=== PATIENT | female | born 1950 | race Caucasian/White ===

== ENCOUNTER 2017-10-27 09:28 | Day surgery (SDC) | payer MEDICARE, OTHER ==
[~2017-10-27] VITALS: Ht 156.2 cm; Wt 56.2 kg
[~2017-10-27 09:28] MED LIST: ADULT ASPIRIN E81 MG PO; ATORVASTATIN CA10 MG PO; B-12 COMPL1000 MCG/M IM; CITALOPRAM40 MG PO; CLOPIDOGREL75 MG PO; LORTAB5 PO; XANAX1 MG PO
[2017-10-27] MEDS ORDERED: BL IBUPROFEN200 MG PO (09:46)
[2017-10-27 12:46] VITALS: BP 161/63
[2017-10-27] MEDS ORDERED: PERCOCET1 TA4 PO (12:48)
== END 2017-10-27 13:20 | disposition home or self-care (01) ==
LOC: ORM 09:28
PROVIDERS: ATTEND Orthopaedic Surgery
PROC: 0SNCXZZ Release Right Knee Joint, External Approach (ICD-10-PCS; principal; 2017-10-27)
DX: T84.82XA Fibrosis due to internal orthopedic prosthetic devices, implants and grafts, initial encounter (principal); Z96.651 Presence of right artificial knee joint; Y83.1 Surgical operation with implant of artificial internal device as the cause of abnormal reaction of the patient, or of later complication, without mention of misadventure at the time of the procedure

== ENCOUNTER 2020-05-13 08:07 | Emergency (ER) | payer MEDICARE, OTHER ==
[~2020-05-13] VITALS: Ht 156.2 cm; Wt 45.0 kg
[~2020-05-13 08:07] MED LIST changes: +BL IBUPROFEN200 MG PO; +PERCOCET1 TA4 PO
[2020-05-13 11:15] VITALS: BP 120/61
== END 2020-05-13 11:37 | disposition home or self-care (01) ==
LOC: ED 08:07
DX: S83.91XA Sprain of unspecified site of right knee, initial encounter (principal); S16.1XXA Strain of muscle, fascia and tendon at neck level, initial encounter; S09.90XA Unspecified injury of head, initial encounter; F32.9 Major depressive disorder, single episode, unspecified; W01.0XXA Fall on same level from slipping, tripping and stumbling without subsequent striking against object, initial encounter; Y93.K1 Activity, walking an animal; Y92.009 Unspecified place in unspecified non-institutional (private) residence as the place of occurrence of the external cause

== ENCOUNTER 2020-06-12 07:46 | Inpatient (IN) | payer MEDICARE, OTHER ==
[~2020-06-12] VITALS: Ht 167.6 cm; Wt 60.8 kg
[2020-06-12] MEDS ORDERED: WELLBUTRIN XL150 MG PO (14:47)
[2020-06-12] MEDS ORDERED: ESCITALOPRAM OX10 MG PO (14:47)
[2020-06-12] MEDS ORDERED: TRAZODONE50 MG PO (14:48)
[2020-06-12] MEDS ORDERED: ALLERGY NA50 MCG/ACT NS (14:48)
[2020-06-12] MEDS ORDERED: LOSARTAN POTASS50 MG PO (14:49)
[2020-06-12] MEDS ORDERED: IRON (FERROUS S50 MG PO (14:49)
[2020-06-19] VITALS (10 sets, daily range): BP systolic 123–165; BP diastolic 49–80
--- NOTE | 2020-06-19 11:20 | NUR ---
PT ARRIVED TO MED/SURG ROOM 279 IN STABLE CONDITION VIA HOSPITAL BED ACCOMPANIED BY IMERRN;PT A&O X3, ORIENTED TO ROOM AND CALL LIGHT SYSTEM;VS OBTAINED AND ASSESSMENT COMPLETED;PT DENIES ANY CURRENT PAIN OR DISCOMFORTS,PAIN SCALE AND REPORTING EDUCATED;PT POST OP RIGHT SHOULDER ARTHROPLASTY ON 06/19/20;RESPIRATIONS EVEN AND UNLABORED ON RA,CLEAR LUNG SOUNDS AND I.S. PROVIDED, PT DEMONSTRATED USE AND ENCOURAGED USE 10X PER HOUR;ABDOMEN SOFT ON PALPATION AND ACTIVE IN ALL 4 QUADRANTS,LAST BM 06/18/20;WEAK PEDAL PULSES,SCD'S NOTED;#20G TO LAC INFUSING NS WITH EASE @ 100ML/HR,SITE APPEARS HEALTHY;RIGHT SHOULDER DRESSING CDI WITH SLING NOTED, ICE PACK PROVIDED;ICE CHIPS PROVIDED PER REQUEST;FALL AND ALLERGY BAND APPLIED TO LEFT ARM;PT DENIES ANY ADDITIONAL NEEDS AT THIS TIME;ENCOURAGED TO CALL FOR ASSISTANCE IF NEEDED;FALL PRECAUTIONS IN PLACE WITH CALL LIGHT IN REACH;FREQUENT ROUNDS MADE.
--- NOTE | 2020-06-19 13:30 | NUR ---
PT RESTING IN SEMI FOWLERS POSITION;RESPIRATIONS EVEN AND UNLABORED ON RA;PT DENIES ANY CURRENT PAIN OR NEEDS;IV FLUIDS CONTINUE TO INFUSE WITH EASE PER ORDER;RT SHOULDER DRESSING CDI WITH SLING IN PLACE;ASSESSMENT REMAINS UNCHANGED;CALL LIGHT IN REACH;FREQUENT ROUNDS MADE.
--- NOTE | 2020-06-19 15:50 | NUR ---
PT APPEARS TO BE SLEEPING IN SEMI FOWLERS POSITION;RESPIRATIONS EVEN AND UNLABORED ON RA;NO S/S/ OF DISTRESS NOTED;IV FLUIDS INFUSING WITH EASE PER ORDER;DRESSING TO RT SHOULDER CDI;ALL SAFETY PRECAUTIONS REMAIN IN PLACE WITH BED IN THE LWOEST POSITION AND CALL LIGHT IN REACH;WILL CONTINUE TO MONITOR
--- NOTE | 2020-06-19 20:00 | NUR ---
PATIENT RESTING IN BED AT THIS TIME-AWAKE ALERT AND ORKIENTEDX3, PATIENT WITH HOB ELEVATED. RIGHT SHOULDER DRESSING IS CDI. SLING TO RIGHT ARM INTACT. CMS TO RIGHT FINGERS WNL. PATIENT WITH IV SITE TO LEFT AC INTACT WITH LR PATENT AND INFUSING AT 100CC/HR. SITE IS HEALTHY. VOIDING QS ON BSC. ENCOURAGED USE OF IS AT BEDSIDE Q1H WHILE AWAKE. ICE PACK PROVIDED FOR RIGHT SHOULDER ON AND OFF. SAFETY PRECAUTIONS REINFORCED. CALL LIGHT IN REACH. WILL CONT TO MONITOR.
--- NOTE | 2020-06-20 | NUR ---
PATIENT RESTING IN BED-IV FOUND DISLODGED. NEW IV SITE STARTED TO LEFT HAND-#22 GAUGE WITH GOOD BLOOD RETURN. GOWN AND LINENS CHANGED. CALL LIGHT IN REACH. WILL CONT TO MONITOR.
--- NOTE | 2020-06-20 03:39 | NUR ---
PATIENT RESTING IN BED AT THIS TIME-AWAKE ALERT AND ORIENTEDX3. PATIENT WITH HOB ELEVATED. RIGHT SHOULDER DRESSING IS CDI. SLING TO RIGHT ARM INTACT. PATIENT WITH IV SITE TO LEFT AC WITH LR PATENT AND INFUSING AT 100CC/HR. SITE IS HEALTHY. VOIDING QS ON BSC. SCD'S IN PLACE. ENCOURAGED USE OF IS AT BEDISE Q1H WHILE AWAKE. ICE PACK PROVIDED FOR RIGHT SHOULDER ON AND OFF. CALL LIGHT IN REACH. SAFETY PRECAUTIONS REINFORCED. WILL CONT TO MONITOR.
--- NOTE | 2020-06-20 04:00 | NUR ---
PATIENT APPEARS SLEEPING AT THIS TIME-POSITIONED ON LEFT SIDE. EYES ARE CLOSED-RESPS ARE EVEN AND UNLABORED. IVF PATENT AND INFUSING VIA LEFT HAND SITE. CALL LIGHT IN REACH. WILL CONT TO MONITOR.
[2020-06-20 04:38] VITALS: BP 133/63
[2020-06-20 04:53] LABS: HEMATOCRIT 28.6 % (37.0-47.0); HEMOGLOBIN 8.8 g/dl (12.0-16.0)
--- NOTE | 2020-06-20 06:46 | NUR ---
Patient is screened for pT intervention. I went ahead and gave her the precautions for RTSA as well a description of next steps. Due to her postop condition as well as her block- we deferred evaluation. She is to follow up with home health PT upon DC
--- NOTE | 2020-06-20 07:20 | NUR ---
REPORT RECEIVED FROM MARY ALICE ORTIZ.
--- NOTE | 2020-06-20 08:51 | NUR ---
AT BEDSIDE DISCUSSING POC.
[2020-06-20 08:55] VITALS: BP 114/59
--- NOTE | 2020-06-20 08:55 | NUR ---
PT RESTING IN SEMI FOWLERS POSITION,A&0 X3;VS OBTAINED AND ASSESSMENT COMPLETED;PT POD #1 RIGHT SHOULDER ARTHROPLASTY;PT DENIES ANY CURRENT PAIN OR DISCOMFORTS,PAIN SCALE AND REPORTING EDUCATED;RESPIRATIONS EVEN AND UNLABORED ON RA,CLEAR LUNG SOUNDS;I.S. AT BEDSIDE AND PT DEMONSTRATED USE;ABDOMEN SOFT ON PALPATION AND ACTIVE IN ALL 4 QUADRANTS;STRONG PEDAL PULSES;SKIN INTACT;#22G TO LEFT HAND FLUSHED AND PATENT,SITE APPEARS HEALTHY;DRESSING AND SLING REMOVED TO RIGHT SHOULDER REMOVED PER ORDER, DERMOBIND REMAINS INTACT;PT DENIES ANY ADDITIONAL NEEDS AND IS ENCOURAGED TO CALL FOR ASSISTANCE IF NEEDED;FALL PRECAUTIONS IN PLACE WITH BED IN THE LOWEST POSITION AND CALL LIGHT IN REACH;WILL CONTINUE TO MONITOR
[2020-06-20 11:15] VITALS: BP 141/70
--- NOTE | 2020-06-20 12:30 | NUR ---
PT RESTING IN SEMI FOWLERS POSITION;RESPIRATIONS EVEN AND UNLABORED ON RA;PT DENIES ANY CURRENT PAIN OR DISCOMFORTS;IV SITE PATENT;ASSESSMENT REMAINS UNCHANGED;AWAITING PHYSICAL THERAPY TO SEE PT BEFORE DISCHARGE;PT VERBALIZES UNDERSTANDING AND DENIES ANY QUESTIONS OR NEEDS;CALL LIGHT IN REACH;FREQUENT ROUNDS MADE.
--- NOTE | 2020-06-20 13:20 | NUR ---
PT MEDICATED WITH PRN PERCOCET 10/325MG PO FOR RIGHT SHOULDER PAIN RATING 8/10 ON THE PAIN SCALE;WILL CONTINUE TO MONITOR FOR EFFECTIVENESS
--- NOTE | 2020-06-20 14:35 | NUR ---
PHYSICAL THERPAY AT BEDSIDE
--- NOTE | 2020-06-20 15:15 | NUR ---
ALL DISCHARGE INSTRUCTIONS PROVIDED AT THIS TIME;PT INSTRUCTED TO FOLLOW UP WITH SCHEDULED AND PCP. TAKE PAIN MEDICATION DIRECTED, RX FOR PERCOCET 10/325MG PO.RESUME HOME MEDICATIONS;PT DENIES ANY ADDITIONAL QUESTIONS OR NEEDS;IV SITE REMOVED WITH CATHETER INTACT;WHEELCHAIR TO BE PROVIDED FOR D/C HOME;SPOUSE TO TRANSPORT PT HOME;WILL CONTINUE TO MONITOR
--- NOTE | 2020-06-20 15:30 | NUR ---
Discharge instructions given. Patient verbalizes understanding of same. Discharged in stable condition via Wheelchair to Home with spouse. All belongings sent with pt. PT TRANSPORTED TO [facility] IN STABLE CONDITION VIA WHEELCHAIR ACCOMPANIED BY WRITTER. ALL BELONGINGS LEFT WITH PT AT THIS TIME INCLUDING RX FOR PERCOCET. SPOUSE TO TRANSPORT PT HOME.
== END 2020-06-20 15:30 | disposition home or self-care (01) | DRG 483 ==
LOC: MS2 06-19 07:01
PROVIDERS: Orthopaedic Surgery; ADMIT Internal Medicine; ATTEND Internal Medicine
PROC: 0RRJ00Z Replacement of Right Shoulder Joint with Reverse Ball and Socket Synthetic Substitute, Open Approach (ICD-10-PCS; principal; 2020-06-19)
PROC: 0LS30ZZ Reposition Right Upper Arm Tendon, Open Approach (ICD-10-PCS; 2020-06-19)
PROC: 3E0T3BZ Introduction of Anesthetic Agent into Peripheral Nerves and Plexi, Percutaneous Approach (ICD-10-PCS; 2020-06-19)
DX: S46.011A Strain of muscle(s) and tendon(s) of the rotator cuff of right shoulder, initial encounter (principal); S46.211A Strain of muscle, fascia and tendon of other parts of biceps, right arm, initial encounter; M19.011 Primary osteoarthritis, right shoulder; I10 Essential (primary) hypertension; E78.5 Hyperlipidemia, unspecified; I25.10 Atherosclerotic heart disease of native coronary artery without angina pectoris; F32.9 Major depressive disorder, single episode, unspecified; F41.9 Anxiety disorder, unspecified; W31.89XA Contact with other specified machinery, initial encounter; Y93.H2 Activity, gardening and landscaping; Y92.007 Garden or yard of unspecified non-institutional (private) residence as the place of occurrence of the external cause; Z20.828 Contact with and (suspected) exposure to other viral communicable diseases
CPT/HCPCS: C9290; J1100

== ENCOUNTER 2020-07-20 17:34 | Emergency (ER) | payer MEDICARE, OTHER ==
[~2020-07-20 17:34] MED LIST changes: +ALLERGY NA50 MCG/ACT NS; +ESCITALOPRAM OX10 MG PO; +IRON (FERROUS S50 MG PO; +LOSARTAN POTASS50 MG PO; +TRAZODONE50 MG PO; +WELLBUTRIN XL150 MG PO
== END 2020-07-20 18:24 | disposition left against medical advice (07) ==
LOC: ED 17:34 → LWOBS 18:24
DX: Z53.21 Procedure and treatment not carried out due to patient leaving prior to being seen by health care provider (principal)

== ENCOUNTER 2021-10-04 16:58 | Emergency (ER) | payer MEDICARE, OTHER ==
[~2021-10-04] VITALS: Ht 167.6 cm; Wt 58.0 kg
[2021-10-04] VITALS (8 sets, daily range): BP systolic 162–194; BP diastolic 69–91
[2021-10-04] MEDS ORDERED: ONDANSETRON ODT8 MG PO (18:26)
[2021-10-04] MEDS ORDERED: HYDROCO/APAP1 TA9 PO (18:26)
== END 2021-10-04 19:30 | disposition home or self-care (01) ==
LOC: ED 16:58
PROC: 2W39X1Z Immobilization of Left Upper Extremity using Splint (ICD-10-PCS; principal; 2021-10-04)
DX: S52.022A Displaced fracture of olecranon process without intraarticular extension of left ulna, initial encounter for closed fracture (principal); I10 Essential (primary) hypertension; F32.A Depression, unspecified; W10.8XXA Fall (on) (from) other stairs and steps, initial encounter; Y92.028 Other place in mobile home as the place of occurrence of the external cause

== ENCOUNTER 2022-08-12 08:17 | Day surgery (SDC) | payer MEDICARE, OTHER ==
[~2022-08-12] VITALS: Ht 154.9 cm; Wt 53.5 kg
[~2022-08-12 08:17] MED LIST changes: +HYDROCO/APAP1 TA9 PO; +ONDANSETRON ODT8 MG PO
[2022-08-12 10:09] VITALS: BP 151/77
== END 2022-08-12 10:22 | disposition home or self-care (01) ==
LOC: ENDO 08:17 → ORM 10:00 → ENDO 10:22 → ORM 11:20
PROVIDERS: ATTEND Internal Medicine Gastroenterology
PROC: 0DJD8ZZ Inspection of Lower Intestinal Tract, Via Natural or Artificial Opening Endoscopic (ICD-10-PCS; principal; 2022-08-12)
PROC: 0DB98ZX Excision of Duodenum, Via Natural or Artificial Opening Endoscopic, Diagnostic (ICD-10-PCS; 2022-08-12)
PROC: 0DB78ZX Excision of Stomach, Pylorus, Via Natural or Artificial Opening Endoscopic, Diagnostic (ICD-10-PCS; 2022-08-12)
DX: D64.9 Anemia, unspecified (principal); K64.8 Other hemorrhoids; K44.9 Diaphragmatic hernia without obstruction or gangrene; K29.70 Gastritis, unspecified, without bleeding; F32.A Depression, unspecified; F41.9 Anxiety disorder, unspecified; Z98.890 Other specified postprocedural states